=== PATIENT | male | born 1965 | race Caucasian/White ===

== ENCOUNTER 2017-11-12 09:20 | Emergency (ER) | payer SELFPAY, BC, OTHER ==
[2017-11-12] MEDS: FAMOTIDINE 20 MG TAB PO (10:00)
[2017-11-12] MEDS: LIDOCAINE/MYLANTA 40 ML BTL PO (10:00)
== END 2017-11-12 11:54 | disposition home or self-care (01) ==
LOC: FTE 09:20
DX: T18.108A Unspecified foreign body in esophagus causing other injury, initial encounter (principal); X58.XXXA Exposure to other specified factors, initial encounter; Y92.9 Unspecified place or not applicable
CPT/HCPCS: 93005; 99283-25